=== PATIENT | male | born 2000 | race Caucasian/White ===

== ENCOUNTER 2019-04-29 18:50 | Emergency (ER) | payer BC, MEDICAID, SELFPAY ==
[2019-04-29 19:01] VITALS: BP 119/73; PULSE 90; RESP 19; TEMP 36.9; O2SAT 100
[2019-04-29] MEDS: ONDANSETRON HCL ODT 4 MG TABLET PO (19:15)
--- NOTE | 2019-04-29 19:42 | ED.GENADULT ---
HPI - General Adult General Chief complaint: Nausea/Vomiting/Diarrhea Stated complaint: N/V Time Seen by Provider: 04/29/19 18:52 Source: patient Mode of arrival: ambulatory Limitations: no limitations History of Present Illness HPI narrative: Patient is a 18-year-old male presents with congestion rhinorrhea and nausea for the last 2 to 3 days also with family member who is also experiencing similar symptoms. Patient denies any vomiting diarrhea fever. Patient has not taken anything for his symptoms. Patient denies any pain Related Data Home Medications Medication Instructions Recorded Confirmed No Home Medications 04/29/19 04/29/19 Allergies Allergy/AdvReac Type Severity Reaction Status Date / Time No Known Allergies Allergy Verified 04/29/19 19:03 Review of Systems Review of Systems: All systems reviewed & are unremarkable except as noted in HPI and below PMFSH Social History Social History (Updated 04/29/19 @ 19:47 by Ga Vasquez PA-C) Smoking status: Current every day smoker Gender identity (if verbalized by the patient): Male Exam Narrative: Exam Narrative: GENERAL: Well-appearing, well-nourished, and in no acute distress. HEAD: Normocephalic, atraumatic. EYES: PERRLA and EOMI. ENT: Nares clear, no rhinorrhea or epistaxis. Mucous membranes moist. Oropharynx without tonsillar hypertrophy exudate or other lesions. CHEST: Clear to auscultation. No respiratory distress. No wheezes rales or rhonchi HEART: Regular rate and rhythm. No murmur heard. . EXTREMITIES: Normal range of motion. No edema. SKIN: Warm, dry, no rash. NEURO: No focal deficits. Alert and oriented x3. PSYCH: Normal mood and affect. Course Course Emergency Course: Patient in the room in no distress afebrile nontoxic-appearing without emesis felt appropriate for outpatient reevaluation Vital Signs Vital signs: Vital Signs Temperature 98.5 F 04/29/19 19:01 Pulse Rate 90 04/29/19 19:01 Respiratory Rate 04/29/19 19:01 Blood Pressure 119/73 04/29/19 19:01 Pulse Oximetry 100 04/29/19 19:01 Temperature 98.5 F 04/29/19 19:01 Pulse Rate 90 04/29/19 19:01 Respiratory Rate 19 04/29/19 19:01 Blood Pressure 119/73 04/29/19 19:01 Pulse Oximetry 100 04/29/19 19:01 Medical Decision Making MDM Narrative Medical decision making narrative: Patient with likely viral syndrome afebrile nontoxic-appearing felt appropriate for outpatient reevaluation Vital Signs Vital Signs: Vital Signs Temperature 98.5 F 04/29/19 19:01 Pulse Rate 90 04/29/19 19:01 Respiratory Rate 19 04/29/19 19:01 Blood Pressure 119/73 04/29/19 19:01 Pulse Oximetry 100 04/29/19 19:01 Temperature 98.5 F 04/29/19 19:01 Pulse Rate 90 04/29/19 19:01 Respiratory Rate 19 04/29/19 19:01 Blood Pressure 119/73 04/29/19 19:01 Pulse Oximetry 100 04/29/19 19:01 Discharge Plan Discharge Clinical Impression: Acute viral syndrome Patient Disposition: Home, Self-Care Condition: Stable Instructions: Antibiotic Form, Viral Syndrome (ED) Additional Instructions: Follow up with your primary care doctor in 5-7 days for re-evaluation. Go to ER for worsening pain, vision changes, nausea/vomiting, fever/chills, weakness, chest pain, shortness of breath, numbness/tingling, slurred speech, difficulty walking, change in mental status etc. or any other concerns. Stay well-hydrated Take any prescribed medications as directed. Prescriptions: No Action No Home Medications RF: 0 Follow-up/Referrals: UNKNOWN,DOCTOR [Primary Care Provider] - Teo Huang MD [Physician] - Stand Alone Forms: Work/School Release IP
[2019-04-29 20:28] VITALS: BP 118/72; PULSE 91; RESP 16; TEMP 36.6; O2SAT 94
== END 2019-04-29 20:31 | disposition home or self-care (01) ==
PROVIDERS: Emergency Provider Emergency Medicine
DX: B34.9 Viral infection, unspecified (principal); F17.210 Nicotine dependence, cigarettes, uncomplicated
CPT/HCPCS: 87804; 99283; A9270

== ENCOUNTER 2021-03-30 16:28 | Emergency (ER) | payer OTHER, SELFPAY ==
--- NOTE | 2021-03-30 16:34 | ED.DENTAL ---
HPI - Dental/Oral General Chief complaint: Dental/Oral Stated complaint: tooth pain Time Seen by Provider: 03/30/21 16:34 Source: patient and RN notes reviewed History of Present Illness HPI Narrative: Patient is a 20-year-old male who presents the urgent care with complaints of right lower dental pain. Patient states that it started 1 week ago and is worsened over the last 2 days. Patient states that he did fracture the tooth sometime ago and has a dentist appointment tomorrow. Patient was told by his dentist to go to the urgent care and get on antibiotics before his appointment tomorrow . Patient states has been taking Tylenol and ibuprofen. Denies any fever, chills, nausea, vomiting. No other acute complaints. No acute distress noted. Patient aware of the plan of care. Some parts of this dictation were generated by voice recognition software and may contain typographical and/or grammatical inaccuracies. Related Data Allergies Allergy/AdvReac Type Severity Reaction Status Date / Time No Known Allergies Allergy Verified 03/30/21 16:40 Review of Systems Review of Systems: CONSTITUTIONAL: Denies fever, chills, or sweats. EYES: Denies visual changes, redness, or discharge. ENT: Denies rhinorrhea, congestion, sore throat, or otalgia. Reports of right lower dental pain CARDIOVASCULAR: Denies chest pain, palpitations, or edema. RESPIRATORY: Denies cough or dyspnea. GASTROINTESTINAL: Denies abdominal pain, nausea, vomiting, or diarrhea. GENITOURINARY: Denies dysuria or hematuria. SKIN: Denies rash or itching. MUSCULOSKELETAL: Denies back pain, joint pain, or myalgia. NEUROLOGIC: Denies headache, numbness, or weakness. All other systems reviewed are negative, except as documented in HPI. PMFSH Social History Social History (Updated 04/29/19 @ 19:47 by Ga Vasquez PA-C) Smoking status: Current every day smoker Gender identity (if verbalized by the patient): Male Comments At the time of my signature, I reviewed and agree with the nursing past medical, surgical, social, and family history. There is no relevant family history pertinent to the patient complaint. Exam Narrative: GENERAL: This is a well-nourished, well-developed patient, in no apparent distress. HEAD: normocephalic, atraumatic. EYES: PERRL. Sclera clear/white. Vision is grossly intact. EARS: External ears normal NOSE: External nose normal with no obvious nasal discharge, nares without redness, no rhinorrhea. THROAT: Mucous membranes moist, posterior pharynx clear. DENTAL: Mild to moderate erythema and edema noted to a fractured carious first lower right molar NECK: Neck supple, non-tender without lymphadenopathy CARDIOVASCULAR: Regular rate and rhythm without murmurs, gallops, or rubs. RESPIRATORY: Clear to auscultation. Breath sounds equal bilaterally. No wheezes, rales, or rhonchi. SKIN: warm, intact with no suspicious lesions or rash, good texture and turgor. NEURO: awake, alert, and oriented to person, place and time. There were no obvious focal neurologic abnormalities. EXTREMITIES: No clubbing, cyanosis, or edema. Course Course Level of Care: Express Care Visit Vital Signs Vital signs: Vital Signs Temperature 99.2 F 03/30/21 16:35 Pulse Rate 70 03/30/21 16:35 Respiratory Rate 18 03/30/21 16:35 Blood Pressure 116/72 03/30/21 16:35 Pulse Oximetry 100 03/30/21 16:35 Temperature 99.2 F 03/30/21 16:35 Pulse Rate 70 03/30/21 16:35 Respiratory Rate 18 03/30/21 16:35 Blood Pressure 116/72 03/30/21 16:35 Pulse Oximetry 100 03/30/21 16:35 Reviewed MDM - Dental/Oral MDM Narrative Medical decision making narrative: Advised the patient to complete the oral antibiotic regimen as prescribed. Be sure to eat and drink with medication. Continue Tylenol/ibuprofen as needed for pain. May use warm compress/ice as needed for comfort. If you develop any increase in pain associated with facial swelling, fever, nausea or
[2021-03-30 16:35] VITALS: BP 116/72; PULSE 70; RESP 18; TEMP 37.3; O2SAT 100
== END 2021-03-30 16:55 | disposition home or self-care (01) ==
PROVIDERS: Emergency Provider Nurse Practitioner Family
DX: K04.7 Periapical abscess without sinus (principal); S02.5XXA Fracture of tooth (traumatic), initial encounter for closed fracture; X58.XXXA Exposure to other specified factors, initial encounter; F17.200 Nicotine dependence, unspecified, uncomplicated
CPT/HCPCS: 99213; G0463

== ENCOUNTER 2021-06-06 19:04 | Emergency (ER) | payer OTHER, SELFPAY ==
[2021-06-06 19:09] VITALS: BP 122/64; PULSE 66; RESP 16; TEMP 36.8; O2SAT 100
--- NOTE | 2021-06-06 19:59 | ED.URI ---
HPI - URI/Sore Throat General Chief Complaint: Upper Respiratory Infection Stated Complaint: Sore Throat Time Seen by Provider: 06/06/21 19:59 Source: patient, RN notes reviewed and old records reviewed Mode of arrival: ambulatory Limitations: no limitations History of Present Illness HPI Narrative: 20year old male who presents to [facility] care with complaints of cough congestion,sore throat,headache, congestion for the past 3-4 days. He reports that his throat is sore especially with swallowing, he reports that he has cough and sinus congestion that is yellowish in color. Patient reports that he has been taking Ibuprofen for his symptoms only. Patient refuses COVID or influenza test.He reports that he has had COVID vaccination but did not have influenza shot. Patient tates that he is unaware of any fevers denies any chills or sweats or any body aches. MD elicited complaint: cough, sore throat, rhinorrhea, nasal congestion and other (headache) Onset (ago): day(s) (4) Severity: moderate Pain scale (0-10): 4 Description of mucous: yellow Able to tolerate fluids by mouth: Yes Exacerbating factors: swallowing Treatments prior to arrival: ibuprofen Related Data Allergies Allergy/AdvReac Type Severity Reaction Status Date / Time No Known Allergies Allergy Verified 06/06/21 19:27 Review of Systems Review of Systems: CONSTITUTIONAL: Denies any known fever, chills, or sweats. EYES: Denies visual changes, redness, or discharge. ENT: Positive for rhinorrhea, congestion, sore throat, no otalgia, positive for sinus pressure CARDIOVASCULAR: Denies chest pain, palpitations, or edema. RESPIRATORY: Positive for cough denies any dyspnea. GASTROINTESTINAL: Denies abdominal pain, nausea, vomiting, or diarrhea. GENITOURINARY: Denies dysuria or hematuria. SKIN: Denies rash or itching. MUSCULOSKELETAL: Denies back pain, joint pain, or myalgia. NEUROLOGIC: Positive for frontal headache, no numbness, or weakness. PSYCHIATRIC: Denies anxiety or depression. All systems reviewed & are unremarkable except as noted in HPI and below PMFSH Past Medical History Medical History (Updated 06/06/21 @ 21:54 by Bibiana Chambers NP) No significant medical problems Surgical History Surgical History (Updated 06/06/21 @ 21:47 by Bibiana Chambers NP) H/O elbow surgery History of placement of ear tubes Social History Social History (Updated 06/06/21 @ 21:48 by Bibiana Chambers NP) Smoking packs per day: 1 Smoking cigarettes per day: 20.0 Years smoked: 4 Smoking pack-years: 4.00 Smoking status: Current every day smoker Alcohol intake: current Alcohol use details: rare social Substance use: unknown Living arrangements: with family Gender identity (if verbalized by the patient): Male Comments At time of signature, agree with nursing past medical, surgical, social and family history. There is no relevant family history pertinent to the presenting complaint Exam Narrative: GENERAL: Illl-appearing, well-nourished, and in no acute distress. HEAD: Normocephalic, atraumatic. EYES: PERRLA and EOMI. ENT: Nares red with turbinates swollen, yellowish tinged rhinorrhea no epistaxis. Mucous membranes moist.TM's normal with dull light reflex, throat bright red, no lesions or exudates or acute tonsil swelling NECK: Supple.no lymphadenopathy CHEST: Clear to auscultation. No respiratory distress.cough noted at times reported to be productive, no tachypnea, SAO2 100% on room air HEART: Regular rate and rhythm. No murmur heard. Normal peripheral pulses. ABDOMEN: Soft, nontender, nondistended, normal active bowel sounds. EXTREMITIES: Normal range of motion. No edema. SKIN: Warm, dry, no rash. NEURO: No focal deficits. Alert and oriented x3. Course Course Level of Care: Express Care Visit Vital Signs Vital signs: Vital Signs Temperature 36.8 C 06/06/21 19:09 Pulse Rate 66 06/06/21 19:09 Respiratory Rate 16 06/06/21 19:09 Blood
== END 2021-06-06 20:15 | disposition home or self-care (01) ==
PROVIDERS: Emergency Provider Registered Nurse
DX: J06.9 Acute upper respiratory infection, unspecified (principal); R05.9 Cough, unspecified; F17.210 Nicotine dependence, cigarettes, uncomplicated
CPT/HCPCS: 87081; 87880; 99213; G0463